=== PATIENT | female | born 1975 | race Caucasian/White ===

== ENCOUNTER 2021-10-02 13:15 | Emergency (ER) | payer OTHER ==
[2021-10-02] MEDS ORDERED: TRAMADOL HCL50 MG PO (15:53)
== END 2021-10-02 14:50 | disposition home or self-care (01) ==
LOC: ER1 13:15
DX: S82.831A Other fracture of upper and lower end of right fibula, initial encounter for closed fracture (principal); X50.9XXA Other and unspecified overexertion or strenuous movements or postures, initial encounter
CPT/HCPCS: 73600; 73630; 99283

== ENCOUNTER → 2021-10-26 | Outpatient (CLI) | payer OTHER ==
[~2021-10-26] MED LIST: TRAMADOL HCL50 MG PO
== END ==
LOC: KOH-I 09:21
DX: S82.831A Other fracture of upper and lower end of right fibula, initial encounter for closed fracture (principal)
CPT/HCPCS: 73610